=== PATIENT | female | born 2000 | race Caucasian/White ===

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

== ENCOUNTER 2019-04-17 13:38 | Observation (INO) | payer OTHER, SELFPAY ==
[2019-04-17] VITALS (8 sets, daily range): BP systolic 100–132; BP diastolic 46–86; PULSE 62–78; RESP 12–18; TEMP 36.4–36.7; O2SAT 97–99
--- NOTE | 2019-04-17 10:18 | W.PM.HP.N ---
Assessment and Plan Assessment and plan (1) Patellar instability of left knee: Status: Acute Assessment and plan: Patient was seen and examined by Dr. Rey. Plan: Educated patient on surgery covering surgical technique, recovery process, benefits and risks including but not limited to risk of infection, blood clot, damage to soft tissue/blood vessels/nerves in detail. After discussion patient gives verbal understanding of risks and elects to proceed with scheduling surgery. Patient had opportunity to have questions answered to their satisfaction. They will contact office if issues arise. Patient will continue to be scheduled for left tibial tubercle osteotomy and MPFL reconstruction with Dr. Rey. History of Present Illness Narrative: Joya is a 19-year-old female who presents to day surgery for scheduled left tibial tubercle osteotomy and MPFL reconstruction. Patient has previously been seen in clinic by Dr. Rey and was sent to referral after obtaining a CT scan following traumatic dislocation of the left patella. Due to her patellar instability, excessive lateral tilt and patella asad discussed surgical options. Patient tried to improve her symptoms with bracing and PT but continued to report pain and fear of patellar dislocation. Due to her continued symptoms despite trial to conservative treatments she was offered surgical intervention and elected to proceed. She had second opinions from [facility] and [facility] who agreed with combined MPFL and tibial tubercle osteotomy. Review of Systems All systems reviewed & are unremarkable except as noted in HPI and below Cardiovascular Cardiovascular: Denies chest pain, Denies dyspnea and Denies dyspnea on exertion Respiratory Respiratory: Denies dyspnea and Denies dyspnea on exertion PFSH Medical History Hx of acne (Acute) Social History Smoking/Tobacco Use Status: Never Alcohol Intake: current Drug use: Never Substance use type: does not use Details: alcohol:t-21, 4 drinks, marijuana: 03/28/19, pen Do you feel safe at home: Yes Do you feel safe in your relationship?: Yes Meds Home Medications and Allergies Home Medications Medication Instructions Recorded Confirmed Type ibuprofen 400 mg PO TID #30 tab 01/07/15 04/17/19 Rx norgestimate-ethinyl estradiol 1 tab PO DAILY 04/12/19 04/17/19 History [Sprintec (28)] spironolactone 100 mg PO BID 04/12/19 04/17/19 History Allergies Allergy/AdvReac Type Severity Reaction Status Date / Time No Known Allergies Allergy Unverified 04/12/19 14:04 Exam Const General: cooperative, healthy appearing and no acute distress Resp Effort & Inspection: normal respiratory effort, able to speak in complete sentences, no audible wheezes and no cough Auscultation: clear to auscultation bilaterally, no rales, no rhonchi and no wheezes Cardio Heart Sounds: S1 normal, S2 normal and no murmurs Extrem Other: Left knee with -5 - 140 ROM and laterally tilted patella. APprehension with patellar lateralization.
[2019-04-17] MEDS: Lactated Ringers 1,000 ML 80 ML IV ×2 (11:15→18:31)
[2019-04-17] MEDS: ceFAZolin 2 GM/50 ML BAG IVPB (13:54)
[2019-04-17] MEDS: Bupivacaine 0.25% Pres-Free 30 ML VIAL (14:28)
[2019-04-17] MEDS: Bupivacaine LIPOSOME/PF 133 MG/10 ML VIAL IJ (14:29)
[2019-04-17] MEDS: Ketorolac 30 MG/ML VIAL (14:29)
--- NOTE | 2019-04-17 16:50 | DI.RAD_ITS ---
EXAM: XR KNEE LT 1V CLINICAL HISTORY: PATELLAR INSTABILITY. TECHNIQUE: 2D and realtime digital imaging was performed. COMPARISON: XR knee LT 3V AP,lat,bill from 12/31/2018 FINDINGS: C-arm fluoroscopy was utilized by Dr. Rey. Postsurgical changes of an anterior tibial tuberosit y transfer are noted. Please refer to the procedure report for complete details. FLUORO TIME: 48.2 seconds
[2019-04-17] MEDS: Acetaminophen 500 MG TAB 1000 MG PO (18:31)
[2019-04-17] MEDS: ceFAZolin 1 GM/50 ML BAG IVPB (19:40)
[2019-04-17] MEDS: Normal Saline Flush 10 ML SYR IV (21:52)
[2019-04-17] MEDS: Ketorolac 15 MG/ML VIAL IVP (21:52)
[2019-04-18 03:45] VITALS: BP 100/57; PULSE 61; RESP 17; TEMP 36.7; O2SAT 98
[2019-04-18] MEDS: Normal Saline Flush 10 ML SYR IV ×2 (03:46→09:22)
[2019-04-18] MEDS: Ketorolac 15 MG/ML VIAL IVP ×2 (03:46→09:21)
[2019-04-18] MEDS: ceFAZolin 1 GM/50 ML BAG IVPB (03:47)
[2019-04-18 07:55] VITALS: BP 103/65; PULSE 60; RESP 18; TEMP 36.3; O2SAT 100
--- NOTE | 2019-04-18 07:59 | W.PM.DS.N ---
Date of service: 04/18/19 Time of Service: 07:59 DS: Diagnosis Discharge Diagnosis (1) Patellar instability of left knee: Status: Acute Discharge Plan Disposition Patient Disposition: HOME Condition: Good Discharge Details Reason For Visit: LEFT PATELLAR INSTABILITY Admit Date/Time: 04/17/19 13:38 Admit Provider: Rohan Rey Attending Provider: Rohan Rey Primary Care Provider: [facility] Course Hospital Course: Patient was admitted to the medical/surgical floor following the procedure for observation. It was tolerated well without any notable medical, surgical, or anesthetic complications. Mobilization began postoperatively. Vitals were stable. Physical therapy worked with the patient and was cleared for discharge home. No acute medical issues. Home Meds and New Rx's Prescriptions: New acetaminophen 500 mg tablet 1,000 mg PO Q8H PRN (Reason: pain) Qty: 90 RF: 3 ibuprofen 600 mg tablet 600 mg PO TID PRNQty: 60 RF: 3 oxycodone 5 mg tablet 2.5 - 5 mg PO Q4H Qty: 6 RF: 0 Continued spironolactone 100 mg Tablet 100 mg PO BID RF: 0 norgestimate-ethinyl estradiol [Sprintec (28)] 0.25-35 mg-mcg Tablet 1 tab PO DAILY RF: 0 Discontinued ibuprofen 400 MG tablet 400 mg PO TID Qty: 30 RF: 0 Discharge Instructions Additional Instructions: Activity: You may bear weight as tolerated on the leg as long as the brace is on and locked and you are using crutches for support. You should keep the brace on and locked at all times until your follow-up. You should use crutches to support the knee. You may move your ankle and toes as needed. Dressing: You should keep the knee dressing in place until your follow-up appointment. If it becomes soiled or it unravels, you should call and notify the office. You may rewrap or overwrap until the follow-up. Medications: - You should take Tylenol and Ibuprofen around the clock for the first days-weeks. This will cover baseline pain control. - You have been prescribed a stronger medication if needed. If this is necessary, and you need a refill, please call the office at [phone]. Referrals: Rohan Rey MD [ [facility] STAFF PHYSICIAN] - Activity:: Knee in Extension Equipment/Supplies:: Crutches Diet:: As Tolerated Discharge Orders Discharge Orders: Discharge Order (Routine); Ordered 04/18/19 Ordered By: Rohan Rey DS: Summary Status at Discharge Functional status at discharge: uses cane/walker Overall status at discharge: patient is not back to baseline Mental Status: mental status grossly normal Speech and Movement: speech and movement normal Mood: congruent mood Affect: normal affect Exam Psych Mental Status: mental status grossly normal Speech and Movement: speech and movement normal Mood: congruent mood Affect: normal affect DS: Data Vitals/I&O Vitals and I&O: Vital Signs Temperature 36.7 C 04/18/19 03:45 Temperature Source Skin 04/18/19 03:45 Pulse 61 04/18/19 03:45 Pulse Rhythm Regular 04/18/19 03:45 Respiratory Rate 17 04/18/19 03:45 Respiratory Effort 04/18/19 03:45 Respiratory Depth Normal 04/18/19 03:45 Respiratory Pattern Normal 04/18/19 03:45 Blood Pressure 100/57 L 04/18/19 03:45 Pulse Oximetry 98 04/18/19 03:45 Respiratory End-tidal CO2 32 04/17/19 17:32 Oxygen Delivery Method Room Air 04/18/19 03:45 Oxygen Flow Rate 0 04/18/19 03:45 Pain Level 3 04/18/19 03:46 Intake & Output 04/17/19 04/17/19 04/18/19 11:59 23:59 11:59 Intake Total 1224.667 / 1224.667 250 / 250 Balance 1224.667 / 1224.667 250 / 250 Weight 53.7 kg Intake: IV 1134.667 / 1134.667 50 / 50 Oral 90 / 90 200 / 200 Other: Urine Color Pale Yellow Urine Appearance Clear Clear Urine Odor None Emesis Description None PFSH Medical History Hx of acne (Acute) Social History Smoking/Tobacco Use Status: Never Alcohol Intake: current Drug use: Never Substance use type: does not use Details: alcohol:t-21, 4 drinks, marijuana: 03/28/19, pen Do you feel safe at home: Yes Do you feel safe in your relationship?: Yes
[2019-04-18] MEDS: Spironolactone 50 MG TAB 100 MG PO (09:02)
[2019-04-18] MEDS: Acetaminophen 500 MG TAB 1000 MG PO (09:02)
--- NOTE | 2019-04-18 09:27 | IN_ITS ---
Date of service: 04/18/19 Time of Service: 08:41 PT Notes Physical Therapy Inpatient Initial Evaluation Date: 04/18/2019 Referring Doctor: Rohan Rey MD PT Orders: PT CONSULT: Status post Ortho surgery. Status post left MPFL recon and tib tub osteotomy. WBAT in extension with brace. Precautions: Fall. Standard. WBAT in left LE. Patient Profile/Admitting Diagnosis: Patient is a 19-year-old female status post left medial patellofemoral ligament reconstruction and tibial tubercle osteotomy due to patellar instability, excessive patellar lateral tilt, and patella asad on POD 1. 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 She will be going home to her house here in [place] to continue to recover and will come back in April for orthopedic follow-up. Equipment Owned/DME: Bilateral axillary crutches Subjective: Patient reports discomfort on the left knee with movement and with weight bearing. Objective: General Observation: SHERYL wraps to left LE. Knee immobilizer on left LE. IV in left UE which was just removed by nurse prior to ambulation activity. Mental Status: Alert and oriented x4 Pain: 1-2/10 on left knee with movement and weightbearing ROM: Right Upper Extremity: Shoulder Flexion WFL. Shoulder abduction WFL. Elbow flexion WFL. Wrist flexion WFL. Opening and closing of hand WFL. Left Upper Extremity: Shoulder Flexion WFL. Shoulder abduction WFL. Elbow flexion WFL. Wrist flexion WFL. Opening and closing of hand WFL. Right Lower Extremity: Hip flexion WFL. Hip abduction WFL. Knee flexion WFL. Ankle dorsiflexion WFL. Ankle plantarflexion WFL. Left Lower Extremity: Hip flexion WFL. Hip abduction WFL. Knee flexion NT. Ankle dorsiflexion WFL. Ankle plantarflexion WFL. Strength: Right Upper Extremity: Shoulder flexors 5/5. Shoulder abductors 5/5. Elbow flexors 5/5. Elbow extensors 5/5. Director Of Operations For Therapy strong. Left Upper Extremity: Shoulder flexors 5/5. Shoulder abductors 5/5. Elbow flexors 5/5. Elbow extensors 5/5. Director Of Operations For Therapy strong. Right Lower Extremity: Hip flexors 5/5. Hip abductors 5/5. Knee flexors 5/5. Knee extensors 5/5. Ankle dorsiflexors 5/5. Ankle plantarflexors 5/5. Left Lower Extremity:Hip flexors 4/5. Hip abductors 5/5. Knee flexors NT. Knee extensors NT. Ankle dorsiflexors 5/5. Ankle plantarflexors 5/5. Sensation: Intact as to pain and pressure on bilateral lower extremities. Bed Mobility/Transfers: Rolling independent Supine to sit independent Sit to supine independent Sit to stand independent Stand to sit independent Bed to chair independent Chair to bed independent Gait: Patient is able to tolerate level surface ambulation of 100 feet using bilateral axillary crutches with 3-point gait pattern step through gait pattern requiring supervision assist from PT. She is also able to tolerate three 4-inch steps and two 6-inch steps while holding onto bilateral. She alos manages steps with bilateral axillary crutches without any undue difficulty requiring only supervision assist. Balance: Static Sitting: Normal Dynamic Sitting: Normal Static Standing: Good Dynamic Standing: Fair Special Tests: Mobility Limitations Standardized Measure [facility] 6 clicks Basic Mobility Inpatient Short Form: Raw Score: 23 CMS Score: 11% deficit Informed Consent/Education: Patient instructed in purpose of PT consult, HEP, and safety recommendations. Assessment: Patient is a 19-year-old female status post left medial patell ofemoral ligament reconstruction and tibial tubercle osteotomy due to patellar instability, excessive patellar lateral tilt, and patella asad on POD 1. Patient presents with clinical signs and symptoms consistent with current/admitting diagnoses that have resulted to mobility limitations, gait instability, generalized weakness, and impairment of motor control as demonstrated by the following impairment level findings: 1. Decreased strength to L knee muscle groups 2. Impaired standing balance 3. Limitation of joint range of motion in L knee Impairments continue to contribute to the following functional limitations: 1. Inability to safely ambulate without assistive device and physical assistance 2. Increased fall risk Patient is assessed as a [id number] moderate complexity based on the following: History: Patient is a 19-year-old female status post left medial patello femoral ligament reconstruction and tibial tubercle osteotomy due to patellar instability, excessive patellar lateral tilt, and patella asad on POD 1. Examination: Demonstrable impairment in strength, balance, and range of motion with underlying impairments and functional limitations as documented above Presentation: Stable Decision Makin moderate complexity Goals: N/A. Patient is evaluation only. Plan of Care/Treatment Plan: N/A. Patient is evaluation only. DISCHARGE RECOMMENDATIONS: May benefit from skilled physical therapy services according to orthopedic surgeon's timeline recommendations. Patient will be educated and trained on home exercise program per [facility] exercise protocol in preparation for outpatient physical therapy services. TREATMENT CODE/TIME: 24754 x 37 minutes beginning at 8:41 AM. Thank you very much for this referral. Renea eD Leon PT, DPT, [facility]
--- NOTE | 2019-04-18 15:06 | ROE_ITS ---
APRIL 17, 2019 PREOPERATIVE DIAGNOSIS: Left patellar instability with femoral malrotation. POSTOPERATIVE DIAGNOSIS: Same. OPERATION: Left tibial tubercle osteotomy with medial patellofemoral ligament reconstruction with allograft. ASSISTING SURGEON: Dr. Terrance Aparicio ANESTHESIA: General with adductor canal block. ESTIMATED BLOOD LOSS: 50 cc. FINDINGS: There was only some very minor fissuring seen over the medial aspect of the patella. No trochlear defects. The patella was grossly unstable, even up to about 70 degrees of flexion. Approximately 1 cm. of medialization was performed at the tibial tubercle and an medial patellofemoral ligament reconstruction was performed. Post surgical patella evaluation showed no instability to the knee cap with the inability to dislocate it at any position. COMPLICATIONS: None. DISPOSITION: The patient was awakened from anesthesia and taken to the Post Anesthesia Care Unit in stable condition. 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 She had some initial traumatic dislocations. She has since had recurrent dislocations despite conservative treatment options. She does not have chronic pain. She does not have dislocations with normal daily use but was unable to perform any real athletic activities due to her patellar instability. She was evaluated by myself as well as specialist at [facility] and [facility] who all agreed that surgical intervention was required with both tibial tubercle osteotomy and medial patellofemoral ligament reconstruction. I had a long discussion with her and her Dad over the phone and through office visits. I discussed the risks of the procedure to include bleeding, infection, pain, stiffness, nonunion, hardware prominence, failure of medial patellofemoral ligament graft, recurrence and anterior knee pain. Despite these risks she elected to proceed. PROCEDURE: The patient was screened in the preoperative holding area. Identify was confirmed and the correct size was identified and marked. The consent was reviewed with the patient and signed. History and physical was updated. Joya was taken back to the Post Anesthesia Care Unit where an adductor canal block was administered. After the block was administered she was taken to the Operating Room. All bony prominences were well padded. She was placed in the supine position. General anesthetic was administered. The left leg was prepped with ChloraPrep and draped in a standard fashion. Prophylactic antibiotics in the form of Cefazolin were given. Time out was performed for safe surgery. Prior to performing the surgery a preoperative evaluation was obtained. This showed gross instability of the left patella. There was a notable J-sign even with passive flexion of the knee. With any lateral force the patella could be dislocated up to about 70-80 degrees of flexion. On the back table the gracilis allograft was thawed and prepared. Each free end was whip stitched and it was placed through the Mitek rigid loop device and placed under 10 lbs. of tension. This was kept moist with a Vancomycin soaked gauze. While this was being performed a knee arthroscopy was done by Dr. Aparicio. A standard anterior lateral portal was established. Diagnostic arthroscopy was performed. This showed that the patella was resting in a lateral position. Fortunately there were no major cartilage defects. There was some fissuring seen over the medial aspect of the patella but no full thickness chondral defects or flaps. At about 90 degrees of flexion the patella was well seated within the trochlea. The trochlea did not have any significant dysmorphic features. There was good congruency between the patella and the trochlea. The medial compartment was opened with some valgus stress and did not show any signs of cartilage damage nor meniscal tearing. There was some redundancy of the ligamentum within the notch but there was no anterior cruciate ligament tear, no posterior cruciate ligament tear. The lateral compartment was equally without any significant findings. A secondary portal was not established as there was no preoperative indication for medial or lateral compartment disease. Since there were no cartilage defects to address or loose bodies to remove another portal was not established and the scope was withdrawn after evacuating the excess fluid. We then started with a tibial tubercle osteotomy. An approximately 10 cm. incision was made from just distal to the anterolateral portal, down across and just lateral to the tibial spine. This was taken down through skin only. Before proceeding the tissues were injected with a mixture of 0.25% Bupivacaine, 30 mg. of Ketorolac and 20 cc. of Exparel. This was done in the portal sites, as well as the proposed surgical sites along the tibia. The deep tissues were dissected with electrocautery. The anterior compartment was identified. While leaving a small cuff of tissue in the anterior compartment the fascia incised sharply. Using both Burciaga elevators and electrocautery the anterior compartment musculature was elevated off the bone in a subperiosteal fashion. This had excellent exposure of the lateral tibia. The retinaculum on either side of the patellar tendon was then incised. This was taken all of the way up to the anterolateral portal on the lateral side and enough on the medial side to gain access behind the patellar tendon. The patellar tendon was marked and protected with an [facility] retractor behind the patellar tendon. Multiple K-wires were then placed in the proposed osteotomy site. This was used to prepare the bone in multiple locations but also to ensure that we were of appropriate size. We had planned a small amount of anteriorization and more medialization given that she did not have any chronic anterior knee pain but did have malpositioning of her patella and a mismatch of her tibial tubercle to trochlear groove distance. Once the planned osteotomy site was identified and marked the YgleZ guide was also used to help prepare this path. This was slid over the proposed K- wires and then using a small oscillating saw the osteotomy was performed. This was performed only in the central portion. The bones were etched and the blade was watched at all times. There was no posterior cortical penetration. There was no intra-articular penetration. Using a set of osteotomes the osteotomy was advanced proximally and angled towards the joint to free up the proximal portion of the tibial tubercle. It was also advanced distally leaving a very small bridge of bone for which the osteotome I could rotate on. Once this was freed up the osteotomy site was able to be elevated to make sure that there was no soft tissue attachments. With a medially directed pressure the tibial tubercle was slid over. The goal was for 1 cm. of translation. Once this was translated over 1 cm. it was held in place with K-wires with a 4.5 millimeter cannulated screw system. These were held in place and the x-rays were performed to make sure that we had appropriate positioning of the K-wires. Furthermore, we measured approximately 1 cm. of translation. This did seem to improve the J-sign and improve some of the instability of the patella although it was still unable to be dislocated up to about 50 degrees of flexion. After confirming appropriate positioning the screw paths were first drilled with a 3.2 millimeter drill. The near cortex and tibial tubercle was drilled with a 4.5 millimeter drill for a lag technique. The holes were the countersunk. Appropriately measured 4.5 millimeter solid screw was then placed in each hole. These had excellent purchase of bone. X-rays showed that they were into the cortex. They were not through the cortex but had excellent bite and therefore we did not exchange them for a longer screw. The screw heads were minimally prominent. The wound was then thoroughly irrigated. There was no significant bleeding. A tourniquet was not used. Using a #1 Vicryl the anterior compartment was closed. We then turned our attention to the medial patellofemoral ligament portion of the case. An approximately 2 cm. incision was made over the medial aspect of the patella. This was taken down sharply through the skin. Bovie electrocautery was used to elevated off the soft tissues from the proximal medial aspect of the patella. We made sure not to go into the joint. There was a cyst extraarticular was identified and this was easily elevated and a curved hemostat was able to be placed through this layer over into the posterior aspect of the medial femur, corresponding to where the medial patellofemoral ligament insertion is. This was marked on the skin. The bony edge of the patella was then prepared with a rasp. Two Mitek lupine anchors were then placed. These were then placed to the side for later use. The jameel on the skin over the more posterior aspect of the femur was then incised sharply. This was opened up for 1 cm. Direct palpation found the sulcus between the adductor tubercle and the medial epicondyle. This was loosely used as the starting point for the 4.5 millimeter spade tipped pin for the rigid loop device. This was placed on the knee and a perfect lateral was obtained. Using the reference points of Blumensaat's line and the posterior femoral cortical line the spade tip was positioned. This was then advanced across the femur once and confirmed to be in good position, aiming anterior and proximally. This was advanced all of the way through the bone and out the lateral side of the knee. A shuttle suture was passed through this. The graft was then retrieved from the back table. The graph seemed to fit easily into a 5 millimeter tunnel so we therefore assumed that we could get this into the 4.5 millimeter tunnel. The rigid loop was then advanced through the knee and the graft was pulled into the tunnel. This was done first just to confirm that the graft would fit into the tunnel before deploying the rigid loop device. The rigid loop device was then flipped and placed against the lateral femoral cortex. It was confirmed to be down against bone. The rigid loop was then adjusted so that there was at least 15 millimeter of tendon within the docking side of the femur. Once this was placed the shuttle suture brought the graft back through the medial side of the knee, in between layers #2 and #3. Using the sutures from the lupine anchors two sutures were placed in each limb. These limbs were held against the medial patella under no excessive tension. Once these were tied one limb from each suture was used as a vannessa and the sutures were tied down firmly onto the medial aspect of the patella. This was performed for each limb of the allograft tendon. This had excellent fixation of the tendon against the medial patella. The knee was then through range of motion for at least 15 cycles. The knee cap was stable through all points of testing. With the knee in 60 degrees there was no excessive force and I was able to translate the patella about two quartiles . In full extension there was slightly more translation but again, no more than 2-3 quartiles. With the knee back at 60 degrees the rigid adjustable was tightened just a small amount more until there was 1.5 to 2.0 quartiles of translation. The excess tendon was then cut. The three suture limbs were used to imbricate the medial retinacular tissues. The defect over the medial patella was closed with a #0 Vicryl. The deep tissues were closed with #2-0 Vicryl. All skin was closed with #4-0 Monocryl followed by steri strips. The wounds were dressed with Xeroform, 4 x 4s, Kerlix and an nicanor wrap. Cryo cuff and a knee immobilizer was placed. There was no tourniquet used. There was minimal blood loss. There was no concern for compartment syndrome. She was placed in full extension. She was awakened from anesthesia and taken to the Post Anesthesia Care Unit in stable condition.
== END 2019-04-18 11:16 | disposition home or self-care (01) ==
LOC: PDS 17:48 → MS 17:53
PROVIDERS: Admitting Provider Student in an Organized Health Care Education/Training Program; PCP Family Medicine; Visit Provider Student in an Organized Health Care Education/Training Program
PROC: 0QSH04Z Reposition Left Tibia with Internal Fixation Device, Open Approach (ICD-10-PCS; CPT 29888; principal; 2019-04-17 13:00)
DX: M23.52 Chronic instability of knee, left knee (principal); M22.3X2 Other derangements of patella, left knee
CPT/HCPCS: 27422; 27418; 76942; 97162; 97530; NC; 73560; G0378; J0690; J1100; J1885; J2250; J2405; L1830; L1833; L8699

== ENCOUNTER 2019-04-24 13:07 | Outpatient (CLI) | payer OTHER, SELFPAY ==
--- NOTE | 2019-04-24 13:01 | DI.RAD_ITS ---
EXAM: XR KNEE LT 2V AP,LAT CLINICAL HISTORY: 1ST POST OP TECHNIQUE: COMPARISON: XR knee LT 3V AP,lat,bill from 12/31/2018 XR KNEE LT 1V from 04/17/2019 FINDINGS: Two views were obtained and show [address] in the proximal tibia as well as a suture anchor of the distal femur. No change in alignment in comparison with intraoperative films of . IMPRESSION:
== END 2019-04-24 13:27 ==
PROVIDERS: PCP Family Medicine; Visit Provider Student in an Organized Health Care Education/Training Program
DX: M25.562 Pain in left knee (principal); M22.2X2 Patellofemoral disorders, left knee
CPT/HCPCS: 73560

== ENCOUNTER 2019-05-20 10:23 | Outpatient (CLI) | payer OTHER, SELFPAY ==
--- NOTE | 2019-05-20 10:07 | DI.RAD_ITS ---
EXAM: XR KNEE RT 4V AP,LAT,MICHEL,PAT INDICATION: f/u Rt knee instability. COMPARISON: XR KNEE LT 2V AP,LAT from 04/24/2019 TECHNIQUE: 2D digital imaging was performed. FINDINGS: There are again seen postsurgical changes of anterior tibial tuberosity transfer. Orthopedic hardwar e appears in good position. Bones are intact and normally mineralized. The soft tissues are unremar kable. A suture anchor is again seen in the distal femur.
== END 2019-05-20 10:43 ==
PROVIDERS: PCP Family Medicine; Visit Provider Student in an Organized Health Care Education/Training Program
DX: M25.361 Other instability, right knee (principal); Z47.89 Encounter for other orthopedic aftercare
CPT/HCPCS: 73564

== ENCOUNTER 2020-04-30 12:19 | Outpatient (REF) | payer OTHER, SELFPAY ==
[2020-05-04 15:32] LABS: Chlamydia Result Negative (Negative); GC Result Negative (Negative)
== END 2020-04-30 12:39 ==
LOC: NCHCN 12:19
PROVIDERS: PCP Family Medicine; Visit Provider Family Medicine
DX: Z00.00 Encounter for general adult medical examination without abnormal findings (principal); N89.8 Other specified noninflammatory disorders of vagina
CPT/HCPCS: 87491; 87591

== ENCOUNTER 2022-10-19 15:32 | Outpatient (REF) | payer BC, OTHER, SELFPAY ==
[2022-10-19 20:02] LABS: TSH (W/Ref FT4) 0.72 uIU/mL (0.36-3.74)
== END 2022-10-19 15:33 | disposition home or self-care (01) ==
LOC: NCHCN 15:32
PROVIDERS: PCP Family Medicine; Visit Provider Family Medicine
DX: K59.09 Other constipation (principal)
CPT/HCPCS: 84443

== ENCOUNTER 2022-10-19 16:15 | Outpatient (REF) | payer BC, SELFPAY ==
--- NOTE | 2022-10-19 13:20 | PAPFT_PTH ---
PATIENT: Joya Morse LOC: [facility]#:[id number] AGE/SX: 22/F ROOM: RE10/19/[address]: Zarina Rausch : 2000 BED: DIS: 10/19/2022 SPEC #: [id number] RECD: 10/20/22 13:04 STATUS: MIREYA CANDELARIA #: [id number] JASON: 10/19/22 13:[address]: Zarina Rausch DEPT: [facility] Cytology RECD BY: Sandra Gong Tissues: 1 - CX/ENDOCX FOR PAP SMEARS Procedures: PAP THIN PREP/UVM Screening HPV DNA PROBE Comments: [id number] (HPV 16 & 18/45)
== END 2022-10-19 16:16 | disposition home or self-care (01) ==
LOC: NCHCN 16:15
PROVIDERS: PCP Family Medicine; Visit Provider Family Medicine
DX: Z12.4 Encounter for screening for malignant neoplasm of cervix (principal); R87.610 Atypical squamous cells of undetermined significance on cytologic smear of cervix (ASC-US); Z11.51 Encounter for screening for human papillomavirus (HPV); R87.810 Cervical high risk human papillomavirus (HPV) DNA test positive
CPT/HCPCS: 88142; 87624

== ENCOUNTER 2025-01-06 09:48 | Emergency (ER) | payer OTHER, BC, SELFPAY ==
[2025-01-06 10:01] VITALS: BP 120/84; PULSE 91; RESP 16; TEMP 36.9; O2SAT 98
--- NOTE | 2025-01-06 10:33 | DI.RAD_ITS ---
Exam(s) XR KNEE RT 4V AP,LAT,MICHEL,PAT EXAM: XR KNEE RT 4V AP,LAT,MICHEL,PAT CLINICAL HISTORY: R knee pain post patella disloc/reduc. TECHNIQUE: 2D digital imaging was performed. Three views. COMPARISON: CR XR KNEE RT 4V AP,LAT,MICHEL,PAT from 05/20/2019 FINDINGS: BONES: No acute fracture is present. No bony destructive lesion is seen. JOINTS: The knee is normally aligned. No joint effusion is seen. The joint spaces are maintained. SOFT TISSUE: Normal. IMPRESSION: Unremarkable radiographs of the right knee. DATA REPOSITORY: RADIATION DOSE DELIVERED:
[2025-01-06 10:50] VITALS: BP 109/77; PULSE 71; O2SAT 99
--- NOTE | 2025-01-06 10:51 | ED.GENADUL_ITS ---
Discharge Plan Disposition Patient Disposition: Home Condition: Stable Discharge Details Clinical Impression: Pain in right knee Primary Care Provider: Zarina Rausch ED Provider: Ramiro Gutierrez Home Meds and New Rx's Prescriptions: Continued spironolactone 100 mg Tablet 100 mg PO BID norgestimate-ethinyl estradiol [Sprintec (28)] 0.25-35 mg-mcg Tablet 1 tab PO DAILY acetaminophen 500 mg tablet 1,000 mg PO Q8H PRN (Reason: pain) Qty: 90 3RF ibuprofen 600 mg tablet 600 mg PO TID PRNQty: 60 3RF Discharge Instructions Instructions: Knee Pain ED Additional Instructions: You were seen in the emergency department for your continued knee pain after spontaneous reduction of a brief dislocation of your right patella. This is fairly normal to experience lingering pain though I think you should follow-up with orthopedics if it does not improve with significant rest, ice, compression and elevation as well as regular dose of Tylenol and ibuprofen. Please use your at home knee brace as needed, we have provided you a work note with minimal kneeling and climbing of stairs for the next few days. Stand Alone Forms: Work Release Referrals: [facility] [Provider Group] Zarina Rausch MD [Primary Care Provider, Medicine] Discharge Data Discharge Date/Time-TO BE ENTERED AT DEPARTURE: 01/06/25 11:52 HPI General Date/Time Provider Initiated Documentation: 01/06/25 10:16 . HPI Narrative: 24 year-old female presents to ED today by POV/ambulating with a chief complaint of recent patellar dislocation with self-reduction over a week ago to R knee, R- foot dominant, with history of contralateral dislocations requiring surgical intervention. Quality described as soreness to R knee is still lingering, no radiation to redness, swelling, effusion, instability, numbness/tingling. Severity is described as moderate. Palliating factors include nothing specific attempted. Provoking factors include nothing specific. Patient not anticoagulated. Related Data Home Medications ?Medication ?Instructions ?Recorded ?Confirmed norgestimate 0.25 mg-ethinyl 1 tab PO DAILY 04/12/19 0 01/06/25 estradiol 0.035 mg tablet (Sprintec (28)) spironolactone 100 mg tablet 100 mg PO BID 04/12/19 acetaminophen 500 mg tablet 1,000 mg (2 x 500 mg) PO Q 8H PRN 04/18/19 01/06/25 pain #90 tabs ibuprofen 600 mg tablet 600 mg PO TID PRN #60 tabs 1 06/18/18 01/06/25 Previous Rx's ?Medication ?Instructions ?Recorded acetaminophen 500 mg tablet 1,000 mg (2 x 500 mg) PO Q 8H PRN 04/18/19 pain #90 tabs ibuprofen 600 mg tablet 600 mg PO TID PRN #60 tabs 1 06/18/18 Allergies Allergy/AdvReac Type Severity Reaction Status Date / Time No Known Allergies Allergy Unverified 01/06/25 10:05 General Stated Complaint: Orthopedic ROSANA: 4 Review of Systems All systems reviewed & are unremarkable except as noted in HPI and below Exam Narrative Exam Narrative: GENERAL APPEARANCE: Well-nourished, non-toxic, awake and alert, atraumatic, no acute distress. SKIN: Warm, pink, dry, intact, without rashes/lesions/ulcerations. HEAD: Normocephalic, atraumatic, normal hair distribution for gender/age. EYES: Normal conjunctiva, no exudates on lids/lashes. ENT: Nares patent, no circumoral cyanosis, no facial swelling NECK: Supple, trachea midline, painless cervical ROM. LUNGS/CHEST: Non-labored respirations, normal A/P diameter, symmetrical e xpansion, no chest wall deformity HEART (CV/PV): No peripheral edema, no JVD. ABDOMEN: Soft, non-distended, no guarding. MSK: Normal ROM, no swelling/deformity to bilateral UEs or LEs, moving all ext remities without weakness, no cyanosis, spine midline without tenderness, normal curvature, R KNEE: Patella mobile without crepitus, tenderness, negative anterior drawer, negative Horace test, no laxity with varus valgus forces NEURO: Mental Status AAOx4 - alert to person, place, time, events No facial droop, no forehead involvement. Motor: No focal weakness - strength 5/5 in bilateral UEs and LEs, proximal and distal, symmetric. Sensory: sensation intact to light touch globally. Gait normal: patient ambulated without ataxia into ED room. PSYCH: euthymic, cooperative, pleasant, appropriate speech Course Vital Signs Vital signs: Vital Signs Temperature 36.9 C 01/06/25 10:01 Pulse 91 H 01/06/25 10:01 Respiratory Rate 16 01/06/25 10:01 Blood Pressure 120/84 01/06/25 10:01 Pulse Oximetry 98 01/06/25 10:01 Temperature 36.9 C 01/06/25 10:01 Pulse 71 01/06/25 10:50 Respiratory Rate 16 01/06/25 10:01 Blood Pressure 109/77 01/06/25 10:50 Blood Pressure Mean 87 01/06/25 10:50 Pulse Oximetry 99 01/06/25 10:50 Oxygen Delivery Method Room Air 01/06/25 10:01 Oxygen Flow Rate 0 01/06/25 10:01 Medical Decision Making This dictation utilizes [id number] dictation software and may contain unedited grammatical errors. 24 year-old female presents to ED today by POV/ambulating with a chief complaint of recent patellar dislocation with self-reduction over a week ago to R knee, R- foot dominant, with history of contralateral dislocations requiring surgical intervention. Quality described as soreness to R knee is still lingering, no radiation to redness, swelling, effusion, instability, numbness/tingling. Severity is described as moderate. Palliating factors include nothing specific attempted. Provoking factors include nothing specific. Patients' medical history: History of MPFL reconstruction with contralateral knee. Family and social history: Noncontributory. Pertinent exam findings / vital signs include R KNEE: Patella mobile without crepitus, tenderness, negative anterior drawer, negative Horace test, no laxity with varus valgus forces. Differential / pathologies of concern include fracture, internal knee injury. Diagnostic studies of: - XR R knee-no acute fracture or other abnormality seen. Interventions of: -Recommend neoprene knee brace OTC. ED Course/Assessment/Plan: 24-year-old female history of patellar dislocation of left knee presents 9 days after dislocating her right knee, she was able to self reduce it still having some pain diffusely around the knee without any ligamentous laxity or crepitus or effusion, I did day camp counselor her that she should aggressively RICE her knee and take adequate dose of Tylenol and ibuprofen and use a neoprene knee sleeve follow-up with orthopedics as her prior left knee issues required surgery. Findings not consistent with fracture, ligamentous injury. Disposition of Pain in Right Knee. Patient verbalized understanding of the plan and return to ED criteria and engaged in shared decision making. Medical Records Medical records reviewed: Yes I reviewed the patient's medical records. Imaging Data Radiologic Study: Attestation: I personally reviewed and interpreted this imaging study as follows: Imaging: X-Ray Radiologist's impression: EXAM: XR KNEE RT 4V AP,LAT,MICHEL,PAT CLINICAL HISTORY: R knee pain post patella disloc/reduc. TECHNIQUE: 2D digital imaging was performed. Three views. COMPARISON: CR XR KNEE RT 4V AP,LAT,MICHEL,PAT from 05/20/2019 FINDINGS: BONES: No acute fracture is present. No bony destructive lesion is seen. JOINTS: The knee is normally aligned. No joint effusion is seen. The joint spaces are maintained. SOFT TISSUE: Normal. IMPRESSION: Unremarkable radiographs of the right knee. PFSH All Active Problems (Updated 01/06/25 @ 11:35 by SACHIN Benites) Pain in right knee (Acute) Medical History (Updated 01/06/25 @ 11:35 by SACHIN Benites) Hx of acne Social History Smoking/Tobacco Use Status: Never Smoking risk assessment performed?: Yes Alcohol Intake: current Alcohol Intake frequency: a few times a week Drug use: Occasionally Substance use type: marijuana Details: alcohol:t-21, 4 drinks, marijuana: 03/28/19, pen Current gender identity: female Do you feel safe at home: Yes Do you feel safe in your relationship?: Yes
--- NOTE | 2025-01-15 09:22 | NUR.NOTE ---
Nursing Note: Received call from patient requesting a medical clearance form to give to HR at work. Patient was provided with a light duty for a few days note that has since . She was instructed that we can not clear her for work if that's what they are requesting, she would need to be seen by either orthopedics, primary care, or come back here for re-assessment.
== END 2025-01-06 11:52 | disposition home or self-care (01) ==
PROVIDERS: Emergency Provider Physician Assistant; PCP Family Medicine
DX: M25.561 Pain in right knee (principal)
CPT/HCPCS: 99283 ×2; 73564